=== PATIENT | male | born 2000 | race Caucasian/White ===

== ENCOUNTER 2025-01-09 02:37 | Emergency (ER) | payer OTHER ==
[~2025-01-09] VITALS: Ht 182.9 cm; Wt 106.0 kg
[2025-01-09 03:36] LABS: PLATELET COUNT, AUTOMATED 351 10^3/uL (150-450)
[2025-01-09 03:55] LABS: AMPHETAMINES LEVEL URINE NEGATIVE (NEGATIVE); BARBITURATES URINE NEGATIVE (NEGATIVE); BENZODIAZEPINES URINE NEGATIVE (NEGATIVE); CANNABINOIDS URINE NEGATIVE (NEGATIVE); COCAINE METABOLITE URINE NEGATIVE (NEGATIVE); METHADONE URINE NEGATIVE (NEGATIVE); OPIATES URINE NEGATIVE (NEGATIVE); PHENCYCLIDINE URINE NEGATIVE (NEGATIVE)
[2025-01-09 03:58] LABS: SALICYLATE LEVEL < 3.0 MG/DL (<30)
[2025-01-09 03:59] LABS: ALT/SGPT 37 U/L (7.0-40); AST/SGOT 39 U/L (<34); CALCIUM LEVEL 8.9 MG/DL (8.5-10.1); CARBON DIOXIDE LEVEL 29 MMOL/L (20-31); CHLORIDE LEVEL 105 MMOL/L (98-107); CREATININE FOR GFR 0.76 MG/DL (0.70-1.30); GLOMERULAR FILTRATION RATE > 90.0 (>60); POTASSIUM SERUM 4.0 MMOL/L (3.5-5.1); SODIUM LEVEL 145 MMOL/L (136-145)
[2025-01-09 04:35] LABS: ETHYL ALCOHOL (ETHANOL) 0.371 % (0.000-0.010)
[2025-01-09] MEDS: MULTIVITAMINS/MINERALS THERAP 1 TAB PO SCH (08:57)
[2025-01-09] MEDS: THIAMINE 100 MG TAB PO SCH (08:57)
[2025-01-09] MEDS: FOLIC ACID 1 MG TAB PO SCH (08:57)
[2025-01-09] MEDS ORDERED: NALT50TA4 PO (12:16)
[2025-01-09] MEDS ORDERED: HOME MED LIST COMPLETE! XX SCH (12:20)
[2025-01-09 15:32] VITALS: BP 134/70; TEMP 98.5; O2SAT 98
== END 2025-01-09 15:43 | disposition home or self-care (01) ==
LOC: M ED 02:37 → EDBD 02:37 → M ED 15:43
DX: F10.14 Alcohol abuse with alcohol-induced mood disorder (principal); R45.851 Suicidal ideations; Z79.899 Other long term (current) drug therapy

== ENCOUNTER 2025-01-09 21:49 | Inpatient (IN) | payer OTHER ==
[~2025-01-09] VITALS: Ht 182.9 cm; Wt 106.2 kg
[~2025-01-09 21:49] MED LIST: NALT50TA4 PO
[2025-01-09 22:30] LABS: PLATELET COUNT, AUTOMATED 256 10^3/uL (150-450)
[2025-01-09 22:51] LABS: AMPHETAMINES LEVEL URINE NEGATIVE (NEGATIVE); BARBITURATES URINE NEGATIVE (NEGATIVE); BENZODIAZEPINES URINE NEGATIVE (NEGATIVE); CANNABINOIDS URINE NEGATIVE (NEGATIVE); COCAINE METABOLITE URINE NEGATIVE (NEGATIVE); METHADONE URINE NEGATIVE (NEGATIVE); OPIATES URINE NEGATIVE (NEGATIVE); PHENCYCLIDINE URINE NEGATIVE (NEGATIVE)
[2025-01-09 22:53] LABS: ETHYL ALCOHOL (ETHANOL) 0.008 % (0.000-0.010)
[2025-01-09 22:55] LABS: SALICYLATE LEVEL < 3.0 MG/DL (<30)
[2025-01-09 23:00] LABS: ALT/SGPT 40 U/L (7.0-40); AST/SGOT 38 U/L (<34); CALCIUM LEVEL 8.8 MG/DL (8.5-10.1); CARBON DIOXIDE LEVEL 28 MMOL/L (20-31); CHLORIDE LEVEL 105 MMOL/L (98-107); CREATININE FOR GFR 0.68 MG/DL (0.70-1.30); GLOMERULAR FILTRATION RATE > 90.0 (>60); POTASSIUM SERUM 3.7 MMOL/L (3.5-5.1); SODIUM LEVEL 140 MMOL/L (136-145)
[2025-01-10] MEDS ORDERED: IBUPROFEN 400 MG TAB PO PRN (02:05)
[2025-01-10] MEDS ORDERED: ACETAMINOPHEN 325 MG TAB PO PRN (02:05)
[2025-01-10] MEDS ORDERED: MOM 30 ML SUSPENSION UDC PO PRN (02:05)
[2025-01-10] MEDS ORDERED: MAALOX 30 ML SUSP *UDC PO PRN (02:05)
[2025-01-10 02:48] VITALS: BP 135/84; TEMP 97; O2SAT 100
[2025-01-10] MEDS ORDERED: HOME MED LIST COMPLETE! XX SCH (09:00)
[2025-01-10] MEDS: NICOTINE 21 MG/24 HR 1 EA TRANSDERMAL TD SCH (09:50)
[2025-01-10] MEDS: SERTRALINE HCL 25 MG TABLET PO SCH (11:11)
[2025-01-10 14:11] VITALS: BP 133/73
[2025-01-10] MEDS: MULTIVITAMINS/MINERALS THERAP 1 TAB PO SCH (14:48)
[2025-01-10] MEDS: THIAMINE 100 MG TAB PO SCH (14:48)
[2025-01-10] MEDS: FOLIC ACID 1 MG TAB PO SCH (14:48)
[2025-01-10 15:33] VITALS: BP 133/73; TEMP 97.4; O2SAT 98
[2025-01-10] MEDS: traZODone 50 MG TAB PO PRN (20:39)
[2025-01-10] MEDS: PRAZOSIN 1 MG CAP PO SCH (20:40)
[2025-01-10 22:00] VITALS: BP 133/73
[2025-01-11 06:36] VITALS: BP 150/90; TEMP 97.5; O2SAT 99
[2025-01-11] MEDS ORDERED: ONDANSETRON 4MG ORAL DISINTEGRATING TAB PO PRN (09:00)
[2025-01-11] MEDS: NALTREXONE 50 MG TAB PO SCH (09:18)
[2025-01-11 14:30] VITALS: BP 130/70
[2025-01-11 15:32] VITALS: BP 134/84; TEMP 98; O2SAT 99
[2025-01-11 20:00] VITALS: BP 134/84
[2025-01-11 20:11] VITALS: BP 134/84
[2025-01-12 06:34] VITALS: BP 127/60
[2025-01-12 06:38] VITALS: BP 127/60; TEMP 97; O2SAT 100
[2025-01-12] MEDS ORDERED: PRAZ2CAP PO (08:07)
[2025-01-12] MEDS ORDERED: NALT50TA4 PO (08:07)
[2025-01-12] MEDS ORDERED: SERT25TA21 PO (08:07)
[2025-01-12] MEDS ORDERED: TRAZ-252 PO (08:07)
[2025-01-12] MEDS ORDERED: HYDR50TA70 PO (08:07)
== END 2025-01-12 09:08 | DRG 885 ==
LOC: M ED 21:49 → M ED INP 01-10 02:02 → M PSY 01-10 02:55
PROVIDERS: ADMIT Psychiatry & Neurology Neurology; ATTEND Psychiatry & Neurology Neurology
DX: F33.2 Major depressive disorder, recurrent severe without psychotic features (principal); R45.851 Suicidal ideations; F10.10 Alcohol abuse, uncomplicated; F43.10 Post-traumatic stress disorder, unspecified; F90.9 Attention-deficit hyperactivity disorder, unspecified type; R45.850 Homicidal ideations; R19.7 Diarrhea, unspecified